=== PATIENT | male | born 1960 | race Caucasian/White ===

== ENCOUNTER → 2021-01-31 | Outpatient (CLI) | payer OTHER | END | disposition home or self-care (01) | LOC: ROC 07:33 | PROVIDERS: ATTEND Radiology Radiation Oncology | DX: C77.5 Secondary and unspecified malignant neoplasm of intrapelvic lymph nodes (principal); Z85.46 Personal history of malignant neoplasm of prostate | CPT/HCPCS: 99214; G0463 ==

== ENCOUNTER 2021-04-06 09:25 | Outpatient (CLI) | payer OTHER ==
[2021-04-06] MEDS ORDERED: TRAM50TA2 PO (14:28)
== END 2021-04-06 23:59 | disposition home or self-care (01) ==
LOC: ROC 09:25
PROVIDERS: ATTEND Radiology Radiation Oncology
DX: C77.5 Secondary and unspecified malignant neoplasm of intrapelvic lymph nodes (principal); G89.3 Neoplasm related pain (acute) (chronic); Z85.46 Personal history of malignant neoplasm of prostate
CPT/HCPCS: 99213; G0463

== ENCOUNTER 2021-05-04 07:02 | Outpatient (CLI) | payer OTHER ==
[~2021-05-04 07:02] MED LIST: TRAM50TA2 PO
== END 2021-05-04 23:59 | disposition home or self-care (01) ==
LOC: ROC 07:02
PROVIDERS: ATTEND Radiology Radiation Oncology
DX: C77.5 Secondary and unspecified malignant neoplasm of intrapelvic lymph nodes (principal); G89.3 Neoplasm related pain (acute) (chronic); Z85.46 Personal history of malignant neoplasm of prostate
CPT/HCPCS: 99442